=== PATIENT | male | born 1950 | race African-American/Black ===

== ENCOUNTER 2018-10-06 12:52 | Inpatient (IN) ==
[2018-10-06] MEDS ORDERED: hydrALAZINE 20 MG/1 ML VIAL IV STA (14:40)
[2018-10-06] MEDS ORDERED: hydrALAZINE 20 MG/1 ML VIAL ONE (14:40)
[2018-10-06 15:24] LABS: Basophils % 0.3 % (0.0-0.8); Eosinophils # 0.1 10*3/uL (0.0-0.87); Eosinophils % 0.5 % (0.00-10.9); Hematocrit 39.6 VOL% (42.0-52.0); Hemoglobin 13.2 GM/DL (14.0-18.0); Immature Granulocytes % 0.5 %; Immature Granulocytes Absolute 0.07 #; Lymphocytes # 1.8 10*3/uL (1.4-4.0); Lymphocytes % 13.8 % (21.2-54.2); Mean Corpuscular HGB Conc 33.3 GM/DL (32-36); Mean Corpuscular Hemoglobin 30 PG (27-34); Mean Corpuscular Volume 90.6 FL (87-102); Monocytes # 0.6 10*3/uL (0.11-0.8); Monocytes % 4.5 % (1.7-12.7); Neutrophils # 10.3 10*3/uL (1.4-7.4); Neutrophils % 80.4 % (38.7-73.9); Platelet Count 241 T/CUMM (130-400); Red Blood Count 4.37 MC/CUMM (3.8-5.5); Red Cell Distribution Width 14.2 % (9.3-17.3); White Blood Count 12.9 T/CUMM (4-12)
[2018-10-06 15:38] LABS: PT Patient Result 10.7 SECS; Partial Thromboplastin Time 27.1 SECS (0-40)
[2018-10-06 15:44] LABS: Apearance,Urine CLEAR (Clear); Bilirubin,Urine Negative (Negative); Blood, Urine Small mg/dL (Negative); Glucose,Urine (UA) Negative (Negative); Ketones,Urine Negative (Negative); Mucus,Urine Occasional /LPF (Occasional); Nitrite,Urine Negative (Negative); Protein,Urine Negative; RBC,Urine 8 /HPF (0-4); Squamous Epithelial Cell,Urine Occasional /HPF (0-10); Urine Color Yellow (Yellow); Urine Specific Gravity 1.014 (1.001-1.035); Urine Urobilinogen < 2.0 EU/DL (0.2-1.0); WBC,Urine 1 /HPF (0-6)
[2018-10-06 15:44] LABS: Albumin 3.4 G/DL (3.4-5.0); Bilirubin,Total 0.4 MG/DL (0.2-1.0); Calcium 8.7 MG/DL (8.5-10.1); Potassium 3.5 MMOL/L (3.5-5.1); Total Protein 8.2 G/DL (6.4-8.3)
[2018-10-06] MEDS ORDERED: ONDANSETRON 4 MG/2 ML VIAL IV PRN (16:29)
[2018-10-06] MEDS ORDERED: MORPHINE 4 MG/1 ML VIAL IV PRN (16:29)
[2018-10-06] MEDS: DEXTROSE 5% NACL 0.45% 1,000 ML IV SCH (18:26)
[2018-10-07] MEDS: DEXTROSE 5% NACL 0.45% 1,000 ML IV SCH ×3 (00:20→18:09)
[2018-10-07 04:39] LABS: Basophils % 0.5 % (0.0-0.8); Eosinophils # 0.1 10*3/uL (0.0-0.87); Eosinophils % 2.2 % (0.00-10.9); Hematocrit 35.1 VOL% (42.0-52.0); Hemoglobin 11.7 GM/DL (14.0-18.0); Immature Granulocytes % 0.3 %; Immature Granulocytes Absolute 0.02 #; Lymphocytes # 1.7 10*3/uL (1.4-4.0); Lymphocytes % 26.4 % (21.2-54.2); Mean Corpuscular HGB Conc 33.3 GM/DL (32-36); Mean Corpuscular Hemoglobin 30 PG (27-34); Mean Corpuscular Volume 90.9 FL (87-102); Mean Platelet Volume 10.2 FL (9.6-12.0); Monocytes # 0.4 10*3/uL (0.11-0.8); Neutrophils # 4.1 10*3/uL (1.4-7.4); Neutrophils % 64.6 % (38.7-73.9); Platelet Count 218 T/CUMM (130-400); Red Blood Count 3.86 MC/CUMM (3.8-5.5); Red Cell Distribution Width 14.3 % (9.3-17.3); White Blood Count 6.4 T/CUMM (4-12)
[2018-10-07 04:49] LABS: Calcium 8.1 MG/DL (8.5-10.1); Osmolality,Calculated 273.7 MOS/KG (273-304); Potassium 3.4 MMOL/L (3.5-5.1)
[2018-10-07] MEDS ORDERED: ASPIRIN EC 81 MG TABLET PO SCH (09:00)
[2018-10-07] MEDS: PANTOPRAZOLE 40 MG TABLET PO SCH (09:13)
[2018-10-07] MEDS: amLODIPine 10 MG TABLET PO SCH (09:13)
[2018-10-07] MEDS ORDERED: POTASSIUM CHLORIDE 20 MEQ TABLET PO ONE (10:00)
[2018-10-08] MEDS: DEXTROSE 5% NACL 0.45% 1,000 ML IV SCH ×3 (03:06→22:05)
[2018-10-08] MEDS ORDERED: MEPERIDINE 50 MG/1 ML VIAL IM ONE (07:00)
[2018-10-08] MEDS ORDERED: PROMETHAZINE 25 MG/1 ML VIAL IM ONE (07:00)
[2018-10-08] MEDS ORDERED: GLYCOPYRROLATE 0.4 MG/2 ML VIAL IM ONE (07:00)
[2018-10-08] MEDS ORDERED: MIDAZOLAM 2 MG/2 ML VIAL ONE (07:04)
[2018-10-08] MEDS ORDERED: LIDOCAINE 1% 20 ML VIAL MISC INJ ONE (07:30)
[2018-10-08] MEDS ORDERED: LIDOCAINE 2% 20 ML VIAL RESP TX ONE (07:30)
[2018-10-08] MEDS ORDERED: LIDOCAINE 2% VISCOUS 100 ML BOTTLE SWISH/SPIT ONE (07:30)
[2018-10-08] MEDS ORDERED: MIDAZOLAM 2 MG/2 ML VIAL IV ONE (07:30)
[2018-10-08] MEDS: LOSARTAN 25 MG TABLET PO SCH (10:14)
[2018-10-08] MEDS: PANTOPRAZOLE 40 MG TABLET PO SCH (10:15)
[2018-10-08] MEDS: amLODIPine 10 MG TABLET PO SCH (10:15)
[2018-10-08] MEDS ORDERED: methylPREDNISolone ACETATE 80 MG/1 ML VIAL ONE (11:19)
[2018-10-08] MEDS ORDERED: ROPIVACAINE 0.5% 30 ML VIAL ONE (11:19)
[2018-10-08] MEDS ORDERED: TISSUE ADHESIVE 1 EACH APPLICATOR TOP ONE (11:26)
[2018-10-08] MEDS ORDERED: cloNIDine 0.1 MG TABLET ONE (11:33)
[2018-10-08] MEDS ORDERED: fentaNYL 100 MCG/2 ML VIAL ONE (12:11)
[2018-10-08] MEDS ORDERED: PROPOFOL 200 MG/20 ML VIAL IV ONE (12:11)
[2018-10-09 04:40] LABS: Basophils % 0.4 % (0.0-0.8); Eosinophils # 0.2 10*3/uL (0.0-0.87); Eosinophils % 4.3 % (0.00-10.9); Hematocrit 36.9 VOL% (42.0-52.0); Hemoglobin 12.1 GM/DL (14.0-18.0); Immature Granulocytes % 0.6 %; Immature Granulocytes Absolute 0.03 #; Lymphocytes # 1.3 10*3/uL (1.4-4.0); Lymphocytes % 26.3 % (21.2-54.2); Mean Corpuscular HGB Conc 32.8 GM/DL (32-36); Mean Corpuscular Hemoglobin 30 PG (27-34); Mean Corpuscular Volume 91.8 FL (87-102); Mean Platelet Volume 10.2 FL (9.6-12.0); Monocytes # 0.4 10*3/uL (0.11-0.8); Monocytes % 8.1 % (1.7-12.7); Neutrophils # 2.9 10*3/uL (1.4-7.4); Neutrophils % 60.3 % (38.7-73.9); Platelet Count 200 T/CUMM (130-400); Red Blood Count 4.02 MC/CUMM (3.8-5.5); Red Cell Distribution Width 14.5 % (9.3-17.3); White Blood Count 4.8 T/CUMM (4-12)
[2018-10-09 04:52] LABS: Calcium 8.2 MG/DL (8.5-10.1); Potassium 3.9 MMOL/L (3.5-5.1)
[2018-10-09] MEDS: DEXTROSE 5% NACL 0.45% 1,000 ML IV SCH ×3 (04:57→21:28)
[2018-10-09] MEDS: PANTOPRAZOLE 40 MG TABLET PO SCH (08:45)
[2018-10-09] MEDS: amLODIPine 10 MG TABLET PO SCH (08:45)
[2018-10-09] MEDS: LOSARTAN 25 MG TABLET PO SCH (08:45)
[2018-10-09] MEDS ORDERED: LOSARTAN 25 MG TABLET PO ONE (11:56)
[2018-10-09] MEDS: ACETAMINOPHEN 325 MG TABLET PO PRN (15:49)
[2018-10-10] MEDS ORDERED: DIAZEPAM 5 MG TABLET PO ONE (08:16)
[2018-10-10] MEDS: amLODIPine 10 MG TABLET PO SCH (11:49)
[2018-10-10] MEDS: PANTOPRAZOLE 40 MG TABLET PO SCH (11:49)
[2018-10-10] MEDS: LOSARTAN 50 MG TABLET PO SCH (11:49)
[2018-10-10] MEDS: ACETAMINOPHEN 325 MG TABLET PO PRN (11:49)
[2018-10-10] MEDS ORDERED: TUBERCULIN SKIN TEST 0.1 ML SYRINGE INTRADERM ONE (13:51)
[2018-10-10] MEDS: DEXTROSE 5% NACL 0.45% 1,000 ML IV SCH ×4 (17:43→23:45)
[2018-10-11] MEDS: DEXTROSE 5% NACL 0.45% 1,000 ML IV SCH (04:15)
[2018-10-11 08:52] LABS: Basophils % 0.2 % (0.0-0.8); Eosinophils % 0.1 % (0.00-10.9); Hematocrit 35.5 VOL% (42.0-52.0); Hemoglobin 11.9 GM/DL (14.0-18.0); Immature Granulocytes % 2.9 %; Immature Granulocytes Absolute 0.48 #; Lymphocytes # 1.4 10*3/uL (1.4-4.0); Lymphocytes % 8.6 % (21.2-54.2); Mean Corpuscular HGB Conc 33.5 GM/DL (32-36); Mean Corpuscular Hemoglobin 30 PG (27-34); Mean Corpuscular Volume 90.6 FL (87-102); Mean Platelet Volume 10.5 FL (9.6-12.0); Monocytes # 0.8 10*3/uL (0.11-0.8); Monocytes % 4.7 % (1.7-12.7); Neutrophils # 13.7 10*3/uL (1.4-7.4); Neutrophils % 83.5 % (38.7-73.9); Platelet Count 208 T/CUMM (130-400); Red Blood Count 3.92 MC/CUMM (3.8-5.5); Red Cell Distribution Width 14.2 % (9.3-17.3); White Blood Count 16.5 T/CUMM (4-12)
[2018-10-11 08:59] LABS: Calcium 7.9 MG/DL (8.5-10.1); Osmolality,Calculated 270.1 MOS/KG (273-304); Potassium 3.5 MMOL/L (3.5-5.1)
[2018-10-11] MEDS: amLODIPine 10 MG TABLET PO SCH (09:23)
[2018-10-11] MEDS: LOSARTAN 50 MG TABLET PO SCH (09:23)
[2018-10-11] MEDS: PANTOPRAZOLE 40 MG TABLET PO SCH (09:23)
[2018-10-11 09:31] LABS: Band Neutrophils 5 % (0-10); Hypochromasia 1+; Lymphocytes 6 % (20-55); Platelet Estimate Adequate; Segmented Neutrophils 84 % (50-85); Total Cells Counted 100
[2018-10-11 12:29] LABS: Apearance,Urine CLEAR (Clear); Bacteria,Urine Occasional /HPF (Few); Bilirubin,Urine Negative (Negative); Blood, Urine Moderate mg/dL (Negative); Glucose,Urine (UA) Negative (Negative); Ketones,Urine Negative (Negative); Mucus,Urine Occasional /LPF (Occasional); Nitrite,Urine Negative (Negative); Protein,Urine Negative; RBC,Urine 2 /HPF (0-4); Squamous Epithelial Cell,Urine Occasional /HPF (0-10); Urine Color Yellow (Yellow); Urine Specific Gravity 1.009 (1.001-1.035); WBC,Urine <1 /HPF (0-6)
[2018-10-11] MEDS: LEVOFLOXACIN INJ 750 MG in PREMIX 1 EACH IV SCH (12:36)
[2018-10-11] MEDS: SODIUM CHLORIDE 0.9% 1,000 ML IV SCH ×2 (12:37→22:23)
[2018-10-12] MEDS: SODIUM CHLORIDE 0.9% 1,000 ML IV SCH ×3 (01:55→07:46)
[2018-10-12 05:14] LABS: Basophils % 0.3 % (0.0-0.8); Eosinophils # 0.1 10*3/uL (0.0-0.87); Eosinophils % 0.5 % (0.00-10.9); Hematocrit 33.3 VOL% (42.0-52.0); Hemoglobin 11.1 GM/DL (14.0-18.0); Immature Granulocytes % 1.2 %; Immature Granulocytes Absolute 0.16 #; Lymphocytes # 1.4 10*3/uL (1.4-4.0); Lymphocytes % 10.3 % (21.2-54.2); Mean Corpuscular HGB Conc 33.3 GM/DL (32-36); Mean Corpuscular Hemoglobin 30 PG (27-34); Mean Corpuscular Volume 90.2 FL (87-102); Mean Platelet Volume 10.4 FL (9.6-12.0); Monocytes # 0.7 10*3/uL (0.11-0.8); Neutrophils # 11.3 10*3/uL (1.4-7.4); Neutrophils % 82.7 % (38.7-73.9); Platelet Count 212 T/CUMM (130-400); Red Blood Count 3.69 MC/CUMM (3.8-5.5); Red Cell Distribution Width 14.3 % (9.3-17.3); White Blood Count 13.6 T/CUMM (4-12)
[2018-10-12 05:48] LABS: Calcium 7.9 MG/DL (8.5-10.1); Osmolality,Calculated 275.5 MOS/KG (273-304); Potassium 3.1 MMOL/L (3.5-5.1)
[2018-10-12] MEDS: LOSARTAN 50 MG TABLET PO SCH (08:50)
[2018-10-12] MEDS: amLODIPine 10 MG TABLET PO SCH (08:51)
[2018-10-12] MEDS: POTASSIUM CHLORIDE 20 MEQ TABLET PO PRN ×4 (08:51→14:51)
[2018-10-12] MEDS: PANTOPRAZOLE 40 MG TABLET PO SCH (08:51)
[2018-10-12] MEDS: DEXTROSE 5% NACL 0.45% 1,000 ML IV SCH (09:13)
[2018-10-12] MEDS ORDERED: hydrALAZINE 20 MG/1 ML VIAL IV PRN (09:18)
[2018-10-12] MEDS: LEVOFLOXACIN INJ 750 MG in PREMIX 1 EACH IV SCH (10:54)
[2018-10-12] MEDS ORDERED: hydrALAZINE 25 MG TABLET PO SCH (21:00)
[2018-10-13] MEDS: SODIUM CHLORIDE 0.9% 1,000 ML IV SCH (01:00)
[2018-10-13 04:38] LABS: Basophils % 0.2 % (0.0-0.8); Eosinophils # 0.1 10*3/uL (0.0-0.87); Eosinophils % 1.4 % (0.00-10.9); Hematocrit 32.7 VOL% (42.0-52.0); Hemoglobin 11.1 GM/DL (14.0-18.0); Immature Granulocytes % 0.7 %; Immature Granulocytes Absolute 0.07 #; Lymphocytes # 1.4 10*3/uL (1.4-4.0); Lymphocytes % 14.1 % (21.2-54.2); Mean Corpuscular HGB Conc 33.9 GM/DL (32-36); Mean Corpuscular Hemoglobin 30 PG (27-34); Mean Corpuscular Volume 88.9 FL (87-102); Mean Platelet Volume 10.3 FL (9.6-12.0); Monocytes # 0.6 10*3/uL (0.11-0.8); Monocytes % 6.7 % (1.7-12.7); Neutrophils # 7.4 10*3/uL (1.4-7.4); Neutrophils % 76.9 % (38.7-73.9); Platelet Count 236 T/CUMM (130-400); Red Blood Count 3.68 MC/CUMM (3.8-5.5); Red Cell Distribution Width 14.4 % (9.3-17.3); White Blood Count 9.6 T/CUMM (4-12)
[2018-10-13] MEDS: ACETAMINOPHEN 325 MG TABLET PO PRN (04:51)
[2018-10-13 05:05] LABS: Calcium 8.2 MG/DL (8.5-10.1); Osmolality,Calculated 271.8 MOS/KG (273-304); Potassium 3.4 MMOL/L (3.5-5.1)
[2018-10-13] MEDS: amLODIPine 10 MG TABLET PO SCH (09:24)
[2018-10-13] MEDS: PANTOPRAZOLE 40 MG TABLET PO SCH (09:24)
[2018-10-13] MEDS: POTASSIUM CHLORIDE 20 MEQ TABLET PO PRN (09:24)
[2018-10-13] MEDS: LOSARTAN 50 MG TABLET PO SCH (09:24)
[2018-10-13] MEDS: LEVOFLOXACIN INJ 750 MG in PREMIX 1 EACH IV SCH (09:37)
[2018-10-13] MEDS ORDERED: POTASSIUM CHLORIDE 20 MEQ TABLET PO ONE (11:00)
[2018-10-13 12:23] VITALS: BP 140/78
== END 2018-10-13 13:52 | disposition home health service (06) | DRG 478 ==
LOC: EDUNIT# → EDBD → N.ED 12:52 → N.3E 16:29 → SUATTDRO 16:29 → N.3E 17:35
PROVIDERS: ADMIT Surgery; ATTEND Emergency Medicine
PROC: BRONCHB (2018-10-08 07:35)